=== PATIENT | female | born 2000 | race Caucasian/White ===

== ENCOUNTER 2021-05-04 15:01 | Emergency (ER) | payer SELFPAY ==
[~2021-05-04] VITALS: Ht 175.3 cm; Wt 71.4 kg
[2021-05-04 15:02] VITALS: BP 113/66
[2021-05-04] MEDS ORDERED: VENTAER INH (15:19)
== END 2021-05-04 18:00 | disposition left against medical advice (07) ==
LOC: M ED 15:01
DX: Z53.21 Procedure and treatment not carried out due to patient leaving prior to being seen by health care provider (principal)

== ENCOUNTER → 2021-06-02 | Outpatient (CLI) | payer OTHER ==
[~2021-06-02] MED LIST: VENTAER INH
--- NOTE | 2021-06-02 16:05 | PFTRPT ---
Site: [facility], [address] [place] [address], [id number] ID: [id number] Name: XIN SARMIENTO Visit Date: 06/02/2021 Second ID: [id number] Referring Doctor: Keith De Leon D.O. Reviewing Doctor: Judson Leyva MD Towel Folder: Jacquelyn TERRELL RRT Age: 20 : 2000 Sex: Female Race: Height: 69.00 Inches Weight: 160.00 Lbs BSA: 1.88 Order IDs: [id number] Requested Test(s): <RESP-PFT.PFT B/A> Diagnosis: ASTHMA test meet the ATS standards for acceptability and repeatability. Pt was given four puffs of albuterol for post bronchodilator. Review Status: Not Reviewed Pre-Bronch Post-Bronch Pred Actual %Pred Actual %Chng SPIROMETRY FVC (L) 4.42 4.32 97 4.54 5 FEV1 (L) 3.78 3.39 89 3.93 15 FEV1/FVC (%) 86 78 91 87 10 FEF 25% (L/sec) 6.40 4.95 77 6.66 34 FEF 50% (L/sec) 4.71 3.61 76 4.89 35 FEF 75% (L/sec) 2.07 1.65 79 2.76 66 FEF 25-75% (L/sec) 3.97 3.18 79 4.48 41 FEF Max (L/sec) 7.69 5.04 65 6.82 35 FIVC (L) 4.08 4.49 9 FIF 50% (L/sec) 4.34 4.76 109 4.37 -8 FIF Max (L/sec) 4.82 4.62 -4 MVV (L/min) 123 75 61 Expiratory Time (sec) 6.82 7.18 5 Back Extrap Vol (L) 0.16 0.18 11 Time To FEFmax (sec) 0.246 0.127 -48 LUNG VOLUMES SVC (L) 4.31 4.30 99 IC (L) 2.60 2.59 99 ERV (L) 1.71 1.71 99 TGV (L) 3.20 4.77 149 RV (Pleth) (L) 1.49 3.06 205 TLC (Pleth) (L) 5.80 7.36 126 RV/TLC (Pleth) (%) 24 42 173 DIFFUSION DLCOunc (ml/min/mmHg) 27.79 23.65 85 DL/VA (ml/min/mmHg/L) 4.79 4.12 85 VA (L) 5.80 5.74 99 BHT (sec) 10.17 IVC (L) 4.22 TLC (SB) (L) 5.89 AIRWAYS RESISTANCE Raw (cmH2O/L/s) 1.86 1.08 58 Gaw (L/s/cmH2O) 1.03 0.93 90 sRaw (cmH2O*s) 4.76 3.91 82 sGaw (1/cmH2O*s) 0.20 0.26 128
== END ==
LOC: M CARPUL 15:31
PROVIDERS: ATTEND Family Medicine
DX: J45.909 Unspecified asthma, uncomplicated (principal)

== ENCOUNTER → 2021-06-13 | Outpatient (CLI) | payer OTHER ==
--- NOTE | 2021-06-13 21:49 | REPVR ---
PROCEDURE INFORMATION: Exam: MR Head Without Contrast Exam date and time: 06/13/2021 9:09 AM Age: 20 years old Clinical indication: Pain; Headache; Cluster; headaches w/ decreased vision TECHNIQUE: Imaging protocol: MR of the head without contrast. COMPARISON: No relevant prior studies available. FINDINGS: Brain: No intracranial hemorrhage or extra-axial fluid collection. No evidence of mass effect or midline shift. No white matter abnormalities. No restricted diffusion to suggest acute infarct. Cerebral ventricles: Ventricles, cisterns, and sulci are normal. Bones/joints: Unremarkable. Paranasal sinuses: [id number] mucosal thickening of the paranasal sinuses. Mastoid air cells: Partial opacification of bilateral mastoid air cells. Orbital cavity: Unremarkable. Soft tissues: Unremarkable. IMPRESSION: 1. No acute intracranial findings. 2. Partial opacification of bilateral mastoid air cells. 3. [id number] mucosal thickening of the paranasal sinuses. Electronically signed by: Phoenix Young On 06/13/2021 21:49:37 PM
== END ==
LOC: M RAD 08:29
PROVIDERS: ATTEND Family Medicine
DX: R51.9 Headache, unspecified (principal); J32.9 Chronic sinusitis, unspecified

== ENCOUNTER → 2021-12-11 | Outpatient (CLI) | payer OTHER ==
[~2021-12-11] MED LIST changes: +AMIT50TA PO; +SING5CHW23 PO; +ZOLO25TA PO
[2021-12-11 10:15] LABS: BASO # 0.1 10^3/uL (0.0-0.2); EOS # 0.2 10^3/uL (0.0-0.5); EOS % 3.8 % (0.0-3.0); HEMATOCRIT 39.2 % (36.0-47.0); HEMOGLOBIN 13.1 g/dl (12.0-15.5); LYMPH # 1.5 10^3/uL (1.5-5.0); LYMPH % 28.9 % (24.0-44.0); MEAN CORPUSCULAR HEMOGLOBIN 28.2 pg (27.0-33.0); MEAN CORPUSCULAR HGB CONC 33.4 g/dl (32.0-36.5); MEAN CORPUSCULAR VOLUME 84.5 fl (80.0-96.0); MONO # 0.7 10^3/uL (0.0-0.8); MONO % 12.8 % (2.0-8.0); NEUTROPHILS # 2.7 10^3/uL (1.5-8.5); NEUTROPHILS % 53.5 % (36.0-66.0); PLATELET COUNT, AUTOMATED 287 10^3/uL (150-450); RED BLOOD COUNT 4.64 10^6/uL (4.00-5.40); WHITE BLOOD COUNT 5.1 10^3/uL (4.0-10.0)
[2021-12-11 10:25] LABS: PROTHROMBIN TIME 13.6 SECONDS (12.7-14.5)
[2021-12-11 10:26] LABS: PARTIAL THROMBOPLASTIN TIME 32.4 SECONDS (25.9-37.0)
== END ==
LOC: M LAB 09:02
PROVIDERS: ATTEND Psychiatry & Neurology Neurology
DX: D49.6 Neoplasm of unspecified behavior of brain (principal)

== ENCOUNTER → 2021-12-15 | Outpatient (CLI) | payer OTHER ==
[~2021-12-15] MED LIST changes: +LIDOCAINE 1% MDV 20ML VIAL As Ordered ONE
[2021-12-15 11:40] VITALS: BP 110/65
[2021-12-15 11:42] LABS: APPEARANCE, CSF CLEAR (CLEAR); COLOR, CSF COLORLESS (COLORLESS); CSF TUBE# CELL CNT TUBE 1
[2021-12-15 14:10] LABS: CSF TUBE# GLU TUBE 1; CSF TUBE# TP TUBE 1; GLUCOSE CSF 61 MG/DL (40-75); TOTAL PROTEIN,CSF 37 MG/DL (15-45)
== END ==
LOC: M IRPRO 08:34
PROVIDERS: ATTEND Psychiatry & Neurology Neurology
DX: G35 Multiple sclerosis (principal); G93.2 Benign intracranial hypertension

== ENCOUNTER → 2021-12-27 | Outpatient (CLI) | payer OTHER ==
[~2021-12-27] MED LIST changes: -LIDOCAINE 1% MDV 20ML VIAL As Ordered ONE
== END ==
LOC: M RAD 16:03
PROVIDERS: ATTEND Nurse Practitioner Adult Health
DX: J45.40 Moderate persistent asthma, uncomplicated (principal)

== ENCOUNTER 2022-03-24 16:07 | Emergency (ER) | payer OTHER ==
[~2022-03-24] VITALS: Ht 175.3 cm; Wt 66.6 kg
[2022-03-24 17:21] LABS: BASO # 0.1 10^3/uL (0.0-0.2); BASO % 0.8 % (0.0-1.0); EOS # 0.3 10^3/uL (0.0-0.5); EOS % 3.5 % (0.0-3.0); HEMATOCRIT 37.6 % (36.0-47.0); HEMOGLOBIN 12.1 g/dl (12.0-15.5); LYMPH % 21.5 % (24.0-44.0); MEAN CORPUSCULAR HEMOGLOBIN 28.5 pg (27.0-33.0); MEAN CORPUSCULAR HGB CONC 32.2 g/dl (32.0-36.5); MEAN CORPUSCULAR VOLUME 88.5 fl (80.0-96.0); MONO # 0.9 10^3/uL (0.0-0.8); MONO % 9.4 % (2.0-8.0); NEUTROPHILS % 64.4 % (36.0-66.0); PLATELET COUNT, AUTOMATED 344 10^3/uL (150-450); RED BLOOD COUNT 4.25 10^6/uL (4.00-5.40); WHITE BLOOD COUNT 9.2 10^3/uL (4.0-10.0)
[2022-03-24 17:42] LABS: CK-MB VALUE MASS 1.6 NG/ML (<3.6); CPK CREATINE PHOSPHOKINASE 83 U/L (26-192); MB/CK RELATIVE INDEX 1.93 (< OR =4)
[2022-03-24 17:49] LABS: ALBUMIN 3.6 GM/DL (3.2-5.2); ALT/SGPT 20 U/L (12-78); BILIRUBIN,DIRECT 0.2 MG/DL (0.0-0.2); BILIRUBIN,TOTAL 0.7 MG/DL (0.2-1.0); BLOOD UREA NITROGEN 16 MG/DL (7-18); CALCIUM LEVEL 9.8 MG/DL (8.5-10.1); CARBON DIOXIDE LEVEL 28 MEQ/L (21-32); CHLORIDE LEVEL 106 MEQ/L (98-107); CREATININE FOR GFR 0.82 MG/DL (0.55-1.30); GLOMERULAR FILTRATION RATE > 60.0 (>60); GLUCOSE, FASTING 82 MG/DL (70-100); LIPASE 144 U/L (73-393); NT-PRO BNP 113 PG/ML (<125); POTASSIUM SERUM 4.3 MEQ/L (3.5-5.1); SODIUM LEVEL 142 MEQ/L (136-145); TOTAL PROTEIN 7.4 GM/DL (6.4-8.2)
[2022-03-24 18:02] LABS: HCG, SERUM QUALITATIVE NEGATIVE (NEGATIVE)
[2022-03-24] MEDS ORDERED: IBUPROFEN 600MG TAB PO ONE (21:40)
[2022-03-24 21:46] VITALS: BP 107/66
== END 2022-03-24 21:49 | disposition home or self-care (01) ==
LOC: M ED 16:07
DX: R07.89 Other chest pain (principal); J45.909 Unspecified asthma, uncomplicated; Z79.899 Other long term (current) drug therapy

== ENCOUNTER → 2022-04-26 | Outpatient (CLI) | payer OTHER | LOC: M LAB 15:39 | PROVIDERS: ATTEND Nurse Practitioner Primary Care | DX: D12.6 Benign neoplasm of colon, unspecified (principal) ==

== ENCOUNTER → 2022-06-28 | Outpatient (REF) | payer MEDICAID, OTHER ==
[~2022-06-28] MED LIST changes: +FLUT50SP33 NARES; +NAPR-837 PO; +PRED20TA PO
== END ==
LOC: M SFHCDERM 17:37
PROVIDERS: ATTEND Physician Assistant
DX: L30.9 Dermatitis, unspecified (principal); L57.0 Actinic keratosis

== ENCOUNTER → 2022-07-18 | Outpatient (CLI) | payer OTHER ==
[~2022-07-18] MED LIST changes: +FLUT11IN INH
[2022-07-18 12:59] LABS: BASO # 0.1 10^3/uL (0.0-0.2); BASO % 0.6 % (0.0-1.0); EOS # 0.2 10^3/uL (0.0-0.5); EOS % 2.3 % (0.0-3.0); HEMATOCRIT 38.1 % (36.0-47.0); HEMOGLOBIN 11.9 g/dl (12.0-15.5); LYMPH # 1.9 10^3/uL (1.5-5.0); LYMPH % 23.8 % (24.0-44.0); MEAN CORPUSCULAR HEMOGLOBIN 27.8 pg (27.0-33.0); MEAN CORPUSCULAR HGB CONC 31.2 g/dl (32.0-36.5); MONO # 0.9 10^3/uL (0.0-0.8); MONO % 11.3 % (2.0-8.0); NEUTROPHILS # 4.9 10^3/uL (1.5-8.5); NEUTROPHILS % 61.9 % (36.0-66.0); PLATELET COUNT, AUTOMATED 370 10^3/uL (150-450); RED BLOOD COUNT 4.28 10^6/uL (4.00-5.40); WHITE BLOOD COUNT 7.9 10^3/uL (4.0-10.0)
== END ==
LOC: M LAB 12:23
PROVIDERS: ATTEND Physician Assistant
DX: J45.30 Mild persistent asthma, uncomplicated (principal)

== ENCOUNTER 2022-07-19 13:33 | Emergency (ER) | payer OTHER ==
[~2022-07-19] VITALS: Ht 152.4 cm; Wt 66.9 kg
[~2022-07-19 13:33] MED LIST changes: -FLUT11IN INH; -FLUT50SP33 NARES; -NAPR-837 PO; -PRED20TA PO
[2022-07-19] MEDS ORDERED: FLUT50SP33 NARES (15:10)
[2022-07-19 15:35] LABS: RSV AMPLIFICATION NEGATIVE (NEGATIVE)
[2022-07-19] MEDS ORDERED: KETOROLAC 30 MG/ML 1ML VIAL IV ONE (17:05)
[2022-07-19] MEDS: COMBIVENT RESPIMAT 100-20MCG INHALER 4GM INH SCH ×3 (17:22→18:04)
[2022-07-19 17:27] LABS: BASO # 0.1 10^3/uL (0.0-0.2); BASO % 0.8 % (0.0-1.0); EOS # 0.2 10^3/uL (0.0-0.5); EOS % 2.5 % (0.0-3.0); HEMATOCRIT 39.7 % (36.0-47.0); HEMOGLOBIN 12.8 g/dl (12.0-15.5); LYMPH # 2.1 10^3/uL (1.5-5.0); LYMPH % 22.9 % (24.0-44.0); MEAN CORPUSCULAR HEMOGLOBIN 28.3 pg (27.0-33.0); MEAN CORPUSCULAR HGB CONC 32.2 g/dl (32.0-36.5); MEAN CORPUSCULAR VOLUME 87.8 fl (80.0-96.0); MONO % 10.4 % (2.0-8.0); NEUTROPHILS # 5.9 10^3/uL (1.5-8.5); NEUTROPHILS % 63.1 % (36.0-66.0); PLATELET COUNT, AUTOMATED 414 10^3/uL (150-450); RED BLOOD COUNT 4.52 10^6/uL (4.00-5.40); WHITE BLOOD COUNT 9.3 10^3/uL (4.0-10.0)
[2022-07-19] MEDS ORDERED: ISOVUE-370 76% 100ML VIAL As Ordered ONE (17:39)
[2022-07-19] MEDS ORDERED: NAPR-837 PO (19:13)
[2022-07-19] MEDS ORDERED: PRED20TA PO (19:13)
[2022-07-19 19:34] VITALS: BP 116/78
== END 2022-07-19 19:36 | disposition home or self-care (01) ==
LOC: M ED 13:33
DX: R07.89 Other chest pain (principal); R06.02 Shortness of breath; J45.909 Unspecified asthma, uncomplicated
CPT/HCPCS: 71275; 80047; 84702; 85025; 87631; 94640; 96374; 99284; J1885; Q9967

== ENCOUNTER → 2022-07-20 | Outpatient (CLI) | payer OTHER ==
[~2022-07-20] MED LIST changes: +FLUT11IN INH; +FLUT50SP33 NARES; +NAPR-837 PO; +PRED20TA PO
== END ==
LOC: M CARPUL 13:08
PROVIDERS: ATTEND Physician Assistant
DX: J45.30 Mild persistent asthma, uncomplicated (principal)

== ENCOUNTER 2022-07-23 14:50 | Emergency (ER) | payer OTHER ==
[~2022-07-23] VITALS: Ht 175.3 cm; Wt 68.1 kg
[~2022-07-23 14:50] MED LIST changes: -FLUT11IN INH
[2022-07-23] MEDS ORDERED: FLUT11IN INH (14:58)
[2022-07-23] MEDS ORDERED: IPRATROPIUM 0.5MG/ALBUTEROL 2.5MG INH SOL UD 3ML (DUONEB) NEB ONE (17:15)
[2022-07-23 18:17] VITALS: BP 125/76
== END 2022-07-23 18:18 | disposition home or self-care (01) ==
LOC: M ED 14:50
DX: J98.01 Acute bronchospasm (principal); J45.909 Unspecified asthma, uncomplicated

== ENCOUNTER → 2022-08-08 | Outpatient (CLI) | payer OTHER ==
[~2022-08-08] MED LIST changes: +ADV100INH INH; +FLUT11IN INH; +ONDA4TAB6 PO; +SING4CHW9 PO
[2022-08-08 13:03] LABS: BASO # 0.1 10^3/uL (0.0-0.2); BASO % 1.1 % (0.0-1.0); EOS # 0.1 10^3/uL (0.0-0.5); EOS % 1.9 % (0.0-3.0); HEMATOCRIT 38.5 % (36.0-47.0); HEMOGLOBIN 12.2 g/dl (12.0-15.5); LYMPH # 1.3 10^3/uL (1.5-5.0); LYMPH % 28.1 % (24.0-44.0); MEAN CORPUSCULAR HEMOGLOBIN 27.8 pg (27.0-33.0); MEAN CORPUSCULAR HGB CONC 31.7 g/dl (32.0-36.5); MEAN CORPUSCULAR VOLUME 87.7 fl (80.0-96.0); MONO # 0.9 10^3/uL (0.0-0.8); NEUTROPHILS # 2.4 10^3/uL (1.5-8.5); NEUTROPHILS % 50.7 % (36.0-66.0); PLATELET COUNT, AUTOMATED 350 10^3/uL (150-450); RED BLOOD COUNT 4.39 10^6/uL (4.00-5.40); WHITE BLOOD COUNT 4.7 10^3/uL (4.0-10.0)
[2022-08-08 13:35] LABS: ERYTHROCYTE SEDIMENTATION RATE 25 mm/hr (0-20)
[2022-08-08 13:49] LABS: ALBUMIN 3.4 GM/DL (3.2-5.2); ALT/SGPT 24 U/L (12-78); BILIRUBIN,TOTAL 0.4 MG/DL (0.2-1.0); BLOOD UREA NITROGEN 9 MG/DL (7-18); CALCIUM LEVEL 9.1 MG/DL (8.5-10.1); CARBON DIOXIDE LEVEL 26 MEQ/L (21-32); CHLORIDE LEVEL 106 MEQ/L (98-107); CREATININE FOR GFR 0.66 MG/DL (0.55-1.30); FERRITIN 11 NG/ML (8-252); FREE T4 0.99 NG/DL (0.76-1.46); GLOMERULAR FILTRATION RATE > 60.0 (>60); GLUCOSE, FASTING 94 MG/DL (70-100); IRON (FE) 25 UG/DL (50-170); POTASSIUM SERUM 3.7 MEQ/L (3.5-5.1); RHEUMATOID FACTOR QUANT < 10.0 IU/ML (<15.0); SODIUM LEVEL 137 MEQ/L (136-145); THYROID STIMULATING HORMONE 0.864 uIU/ML (0.358-3.740); TOTAL IRON BINDING CAPACITY 497 UG/DL (250-450); TOTAL PROTEIN 7.3 GM/DL (6.4-8.2)
[2022-08-08 14:23] LABS: VITAMIN B12 LEVEL 338 PG/ML (247-911)
[2022-08-10 23:11] LABS: ANA (HEP2) Negative (.); CYCLIC CITRULLINATED PEPTIDE 9 units (0-19)
== END ==
LOC: M LAB 12:12
PROVIDERS: ATTEND Physician Assistant
DX: G47.00 Insomnia, unspecified (principal); J45.41 Moderate persistent asthma with (acute) exacerbation; M25.50 Pain in unspecified joint; M79.89 Other specified soft tissue disorders

== ENCOUNTER 2022-08-12 12:45 | Emergency (ER) | payer OTHER ==
[~2022-08-12] VITALS: Ht 177.8 cm; Wt 66.9 kg
[~2022-08-12 12:45] MED LIST changes: -ADV100INH INH; -ONDA4TAB6 PO; -SING4CHW9 PO
[2022-08-12 12:46] VITALS: BP 132/63
[2022-08-12] MEDS ORDERED: ADV100INH INH (12:55)
[2022-08-12] MEDS ORDERED: SING4CHW9 PO (12:55)
[2022-08-12 13:27] LABS: BASO % 0.4 % (0.0-1.0); EOS # 0.1 10^3/uL (0.0-0.5); HEMATOCRIT 40.6 % (36.0-47.0); HEMOGLOBIN 12.8 g/dl (12.0-15.5); LYMPH # 1.6 10^3/uL (1.5-5.0); LYMPH % 34.9 % (24.0-44.0); MEAN CORPUSCULAR HEMOGLOBIN 27.6 pg (27.0-33.0); MEAN CORPUSCULAR HGB CONC 31.5 g/dl (32.0-36.5); MEAN CORPUSCULAR VOLUME 87.7 fl (80.0-96.0); MONO # 0.5 10^3/uL (0.0-0.8); MONO % 11.3 % (2.0-8.0); NEUTROPHILS # 2.3 10^3/uL (1.5-8.5); NEUTROPHILS % 51.4 % (36.0-66.0); PLATELET COUNT, AUTOMATED 278 10^3/uL (150-450); RED BLOOD COUNT 4.63 10^6/uL (4.00-5.40); WHITE BLOOD COUNT 4.5 10^3/uL (4.0-10.0)
[2022-08-12 14:10] LABS: BLOOD UREA NITROGEN 11 MG/DL (7-18); CARBON DIOXIDE LEVEL 26 MEQ/L (21-32); CHLORIDE LEVEL 105 MEQ/L (98-107); CREATININE FOR GFR 0.71 MG/DL (0.55-1.30); GLOMERULAR FILTRATION RATE > 60.0 (>60); GLUCOSE, FASTING 105 MG/DL (70-100); SODIUM LEVEL 136 MEQ/L (136-145)
[2022-08-12 14:11] LABS: ALBUMIN 3.5 GM/DL (3.2-5.2); ALT/SGPT 28 U/L (12-78); BILIRUBIN,TOTAL 0.3 MG/DL (0.2-1.0); CALCIUM LEVEL 8.9 MG/DL (8.5-10.1); TOTAL PROTEIN 7.6 GM/DL (6.4-8.2)
[2022-08-12 14:34] LABS: HEPATITIS B SURFACE ANTIBODY POSITIVE (POSITIVE)
[2022-08-12 14:46] LABS: HEPATITIS B SURFACE ANTIGEN NEGATIVE (NEGATIVE)
[2022-08-12 15:16] LABS: HEPATITIS C VIRUS ABY INDEX < 0.0 INDEX (<0.8); HIV SCREEN CENTAUR EXPOSED NEGATIVE (NEGATIVE)
[2022-08-12] MEDS ORDERED: ONDA4TAB6 PO (15:28)
[2022-08-12] MEDS ORDERED: ONDANSETRON 4MG ORAL DISINTEGRATING TAB PO ONE (15:30)
[2022-08-12] MEDS ORDERED: EXPOSURE KIT-ADULT 7 DAY SUPPLY PO ONE (15:30)
[2022-08-12 16:00] LABS: HCG, SERUM QUALITATIVE NEGATIVE (NEGATIVE)
[2022-08-12] MEDS ORDERED: RALTEGRAVIR 400 MG TAB (ISENTRESS) PO ONE (16:25)
[2022-08-12] MEDS ORDERED: TRUVADA 200MG/300MG TABLET PO ONE (16:25)
[2022-08-13] MEDS ORDERED: RALTEGRAVIR 400 MG TAB (ISENTRESS) PO SCH
[2022-08-13] MEDS ORDERED: TRUVADA 200MG/300MG TABLET PO SCH
== END 2022-08-12 16:46 | disposition home or self-care (01) ==
LOC: M ED 12:45
DX: Z77.21 Contact with and (suspected) exposure to potentially hazardous body fluids (principal); S61.431A Puncture wound without foreign body of right hand, initial encounter; W46.1XXA Contact with contaminated hypodermic needle, initial encounter; Y99.0 Civilian activity done for income or pay; F41.9 Anxiety disorder, unspecified; Z79.51 Long term (current) use of inhaled steroids; Z79.899 Other long term (current) drug therapy

== ENCOUNTER → 2022-08-18 | Outpatient (REF) ==
[~2022-08-18] MED LIST changes: +ADV100INH INH; +ONDA4TAB6 PO; +SING4CHW9 PO
[2022-08-18 13:06] LABS: RSV AMPLIFICATION NEGATIVE (NEGATIVE)
== END ==
LOC: M EMP 11:31
PROVIDERS: ATTEND Family Medicine
DX: Z20.822 Contact with and (suspected) exposure to COVID-19 (principal)

== ENCOUNTER → 2022-08-18 | Outpatient (CLI) | payer OTHER | LOC: M CARPUL 13:35 | PROVIDERS: ATTEND Physician Assistant | DX: M79.89 Other specified soft tissue disorders (principal); R06.02 Shortness of breath ==

== ENCOUNTER 2022-10-16 11:31 | Emergency (ER) | payer OTHER ==
[~2022-10-16] VITALS: Ht 177.8 cm; Wt 70.1 kg
[2022-10-16 12:50] LABS: BASO # 0.1 10^3/uL (0.0-0.2); BASO % 0.6 % (0.0-1.0); EOS # 0.3 10^3/uL (0.0-0.5); EOS % 2.6 % (0.0-3.0); HEMOGLOBIN 12.6 g/dl (12.0-15.5); LYMPH # 1.9 10^3/uL (1.5-5.0); LYMPH % 15.2 % (24.0-44.0); MEAN CORPUSCULAR HEMOGLOBIN 27.4 pg (27.0-33.0); MEAN CORPUSCULAR HGB CONC 32.3 g/dl (32.0-36.5); MEAN CORPUSCULAR VOLUME 84.8 fl (80.0-96.0); MONO # 1.3 10^3/uL (0.0-0.8); MONO % 10.2 % (2.0-8.0); NEUTROPHILS # 8.7 10^3/uL (1.5-8.5); NEUTROPHILS % 71.1 % (36.0-66.0); PLATELET COUNT, AUTOMATED 359 10^3/uL (150-450); WHITE BLOOD COUNT 12.2 10^3/uL (4.0-10.0)
[2022-10-16 13:15] LABS: LIPASE 28 U/L (12-53)
[2022-10-16] MEDS ORDERED: NS 1,000 ML IV ONE (13:15)
[2022-10-16] MEDS ORDERED: ACETAMINOPHEN 1000MG 100ML IV BAG IV ONE (13:15)
[2022-10-16] MEDS ORDERED: ONDANSETRON 4MG 2ML VIAL IV ONE (13:15)
[2022-10-16 13:17] LABS: ALBUMIN 3.7 G/DL (3.2-5.2); ALKALINE PHOSPHATASE 47 U/L (46-116); ALT/SGPT 27 U/L (7.0-40); AST/SGOT 37 U/L (<34); BILIRUBIN,DIRECT 0.3 MG/DL (<0.4); BILIRUBIN,TOTAL 0.9 MG/DL (0.3-1.2); BLOOD UREA NITROGEN 12 MG/DL (9-23); CALCIUM LEVEL 9.6 MG/DL (8.5-10.1); CARBON DIOXIDE LEVEL 22 MMOL/L (20-31); CHLORIDE LEVEL 105 MMOL/L (98-107); CREATININE FOR GFR 0.63 MG/DL (0.55-1.30); GLOMERULAR FILTRATION RATE > 60.0 (>60); GLUCOSE, FASTING 99 MG/DL (60-100); SODIUM LEVEL 139 MMOL/L (136-145); TOTAL PROTEIN 7.5 G/DL (5.7-8.2)
[2022-10-16 13:18] LABS: HCG, SERUM QUALITATIVE NEGATIVE (NEGATIVE)
[2022-10-16] MEDS ORDERED: ISOVUE-370 76% 100ML VIAL As Ordered ONE (13:51)
[2022-10-16 15:22] VITALS: BP 115/73
== END 2022-10-16 15:40 | disposition home or self-care (01) ==
LOC: M ED 11:31
DX: N83.291 Other ovarian cyst, right side (principal); J45.909 Unspecified asthma, uncomplicated; Z79.899 Other long term (current) drug therapy
CPT/HCPCS: 74177; 80048; 80076; 83690; 84703; 85025; 96361; 96374; 96375; 99284; J0131; J2405

== ENCOUNTER → 2022-10-19 | Outpatient (REF) ==
[2022-10-19 14:01] LABS: RSV AMPLIFICATION NEGATIVE (NEGATIVE)
== END ==
LOC: M LABSMTC 11:29
PROVIDERS: ATTEND Family Medicine
DX: Z20.818 Contact with and (suspected) exposure to other bacterial communicable diseases (principal)

== ENCOUNTER → 2022-11-11 | Outpatient (CLI) | payer OTHER ==
[2022-11-11 12:33] LABS: BASO % 0.5 % (0.0-1.0); EOS # 0.1 10^3/uL (0.0-0.5); EOS % 1.2 % (0.0-3.0); HEMATOCRIT 38.2 % (36.0-47.0); HEMOGLOBIN 12.2 g/dl (12.0-15.5); LYMPH # 1.6 10^3/uL (1.5-5.0); LYMPH % 21.4 % (24.0-44.0); MEAN CORPUSCULAR HEMOGLOBIN 27.7 pg (27.0-33.0); MEAN CORPUSCULAR HGB CONC 31.9 g/dl (32.0-36.5); MEAN CORPUSCULAR VOLUME 86.6 fl (80.0-96.0); MONO # 0.8 10^3/uL (0.0-0.8); MONO % 10.5 % (2.0-8.0); NEUTROPHILS # 4.9 10^3/uL (1.5-8.5); NEUTROPHILS % 66.1 % (36.0-66.0); PLATELET COUNT, AUTOMATED 352 10^3/uL (150-450); RED BLOOD COUNT 4.41 10^6/uL (4.00-5.40); WHITE BLOOD COUNT 7.4 10^3/uL (4.0-10.0)
[2022-11-11 12:45] LABS: INR 1.02; PROTHROMBIN TIME 13.6 SECONDS (12.5-14.5)
[2022-11-11 12:46] LABS: PARTIAL THROMBOPLASTIN TIME 29.9 SECONDS (24.8-34.2)
[2022-11-11 13:04] LABS: ALBUMIN 3.8 G/DL (3.2-5.2); ALKALINE PHOSPHATASE 50 U/L (46-116); ALT/SGPT 46 U/L (7.0-40); AST/SGOT 37 U/L (<34); BLOOD UREA NITROGEN 15 MG/DL (9-23); CALCIUM LEVEL 9.1 MG/DL (8.5-10.1); CARBON DIOXIDE LEVEL 31 MMOL/L (20-31); CHLORIDE LEVEL 100 MMOL/L (98-107); CREATININE FOR GFR 0.68 MG/DL (0.55-1.30); GLOMERULAR FILTRATION RATE > 60.0 (>60); GLUCOSE, FASTING 90 MG/DL (60-100); POTASSIUM SERUM 3.9 MMOL/L (3.5-5.1); SODIUM LEVEL 134 MMOL/L (136-145); TOTAL PROTEIN 7.6 G/DL (5.7-8.2)
== END ==
LOC: M RAD 11:55 → M LAB 11:55
DX: Z01.818 Encounter for other preprocedural examination (principal)

== ENCOUNTER → 2022-12-29 | Outpatient (REF) | LOC: M LABSMTC 11:59 | PROVIDERS: ATTEND Family Medicine | DX: Z11.52 Encounter for screening for COVID-19 (principal) ==

== ENCOUNTER 2023-02-07 20:52 | Emergency (ER) | payer OTHER ==
[~2023-02-07] VITALS: Ht 177.8 cm; Wt 76.8 kg
[2023-02-07 20:52] VITALS: BP 127/70
[~2023-02-07 20:52] MED LIST changes: +MONT4TAB2 PO; -SING4CHW9 PO
[2023-02-07 22:37] LABS: URINE PREG TEST NEGATIVE (NEGATIVE)
[2023-02-07 23:59] LABS: GC DNA AMPLIFICATION NEGATIVE (NEGATIVE)
== END 2023-02-08 00:07 | disposition home or self-care (01) ==
LOC: M ED 20:52
DX: N83.291 Other ovarian cyst, right side (principal); J45.909 Unspecified asthma, uncomplicated; F41.9 Anxiety disorder, unspecified; Z79.899 Other long term (current) drug therapy

== ENCOUNTER → 2023-02-24 | Outpatient (REF) | payer OTHER | LOC: M SFHCDERM 08:24 | PROVIDERS: ATTEND Dermatology | DX: D22.9 Melanocytic nevi, unspecified (principal) ==

== ENCOUNTER 2023-05-15 22:07 | Emergency (ER) | payer OTHER ==
[~2023-05-15] VITALS: Ht 177.8 cm; Wt 80.3 kg
[~2023-05-15 22:07] MED LIST changes: -FLUT11IN INH; +FLUT12AE6 INH
[2023-05-15 22:08] VITALS: BP 116/63; TEMP 98.9; O2SAT 100
[2023-05-15] MEDS ORDERED: ALBU2.5V10 INH (22:24)
== END 2023-05-16 00:58 | disposition left against medical advice (07) ==
LOC: M ED 22:07
DX: Z53.21 Procedure and treatment not carried out due to patient leaving prior to being seen by health care provider (principal)

== ENCOUNTER → 2023-05-18 | Outpatient (REF) | payer OTHER ==
[~2023-05-18] MED LIST changes: +ALBU2.5V10 INH
[2023-05-18 14:49] LABS: BASO # 0.1 10^3/uL (0.0-0.2); BASO % 0.8 % (0.0-1.0); EOS # 0.2 10^3/uL (0.0-0.5); HEMATOCRIT 42.8 % (36.0-47.0); HEMOGLOBIN 14.1 g/dl (12.0-15.5); LYMPH # 1.3 10^3/uL (1.5-5.0); LYMPH % 16.9 % (24.0-44.0); MEAN CORPUSCULAR HEMOGLOBIN 29.1 pg (27.0-33.0); MEAN CORPUSCULAR HGB CONC 32.9 g/dl (32.0-36.5); MEAN CORPUSCULAR VOLUME 88.4 fl (80.0-96.0); MONO # 0.9 10^3/uL (0.0-0.8); MONO % 11.5 % (2.0-8.0); NEUTROPHILS # 5.4 10^3/uL (1.5-8.5); NEUTROPHILS % 68.4 % (36.0-66.0); PLATELET COUNT, AUTOMATED 337 10^3/uL (150-450); RED BLOOD COUNT 4.84 10^6/uL (4.00-5.40); WHITE BLOOD COUNT 7.9 10^3/uL (4.0-10.0)
== END ==
LOC: M LAB REF 13:03
PROVIDERS: ATTEND Nurse Practitioner Adult Health
DX: J45.40 Moderate persistent asthma, uncomplicated (principal)

== ENCOUNTER → 2023-05-30 | Outpatient (CLI) | payer OTHER ==
[2023-05-30 17:01] LABS: BASO % 0.6 % (0.0-1.0); EOS # 0.2 10^3/uL (0.0-0.5); HEMATOCRIT 38.6 % (36.0-47.0); HEMOGLOBIN 12.5 g/dl (12.0-15.5); LYMPH # 1.6 10^3/uL (1.5-5.0); LYMPH % 30.3 % (24.0-44.0); MEAN CORPUSCULAR HEMOGLOBIN 28.5 pg (27.0-33.0); MEAN CORPUSCULAR HGB CONC 32.4 g/dl (32.0-36.5); MEAN CORPUSCULAR VOLUME 88.1 fl (80.0-96.0); MONO # 0.7 10^3/uL (0.0-0.8); MONO % 12.3 % (2.0-8.0); NEUTROPHILS # 2.8 10^3/uL (1.5-8.5); NEUTROPHILS % 53.4 % (36.0-66.0); PLATELET COUNT, AUTOMATED 364 10^3/uL (150-450); RED BLOOD COUNT 4.38 10^6/uL (4.00-5.40); WHITE BLOOD COUNT 5.3 10^3/uL (4.0-10.0)
[2023-05-30 17:24] LABS: FERRITIN 41.8 NG/ML (7.3-270.7); THYROID STIMULATING HORMONE 1.311 uIU/ML (0.55-4.78)
[2023-05-30 17:25] LABS: TOTAL 25(OH) VITAMIN D 34.9 NG/ML (20.0-100.0)
[2023-05-30 17:28] LABS: FREE T4 1.03 NG/DL (0.89-1.76)
== END ==
LOC: M LAB 15:43
PROVIDERS: ATTEND Dermatology
DX: T73.2XXA Exhaustion due to exposure, initial encounter (principal); R07.9 Chest pain, unspecified; Y99.8 Other external cause status

== ENCOUNTER → 2023-05-30 | Outpatient (CLI) | payer OTHER | LOC: M RAD 15:50 | PROVIDERS: ATTEND Nurse Practitioner Adult Health | DX: R07.9 Chest pain, unspecified (principal) ==

== ENCOUNTER → 2023-06-06 | Outpatient (REF) | LOC: M EMP 08:18 | PROVIDERS: ATTEND Family Medicine | DX: Z11.52 Encounter for screening for COVID-19 (principal) ==

== ENCOUNTER 2023-06-07 16:07 | Emergency (ER) | payer OTHER ==
[~2023-06-07] VITALS: Ht 177.8 cm; Wt 75.0 kg
[2023-06-07 16:08] VITALS: BP 118/78; TEMP 97.6; O2SAT 99
== END 2023-06-07 20:16 | disposition left against medical advice (07) ==
LOC: M ED 16:07
DX: Z53.21 Procedure and treatment not carried out due to patient leaving prior to being seen by health care provider (principal)

== ENCOUNTER → 2024-02-07 | Outpatient (CLI) | payer OTHER ==
[~2024-02-07] MED LIST changes: +MONT5TAB7 PO; -SING5CHW23 PO
[2024-02-07 13:34] LABS: BASO # 0.1 10^3/uL (0.0-0.2); BASO % 1.2 % (0.0-1.0); EOS # 0.4 10^3/uL (0.0-0.5); EOS % 5.8 % (0.0-3.0); HEMATOCRIT 42.2 % (36.0-47.0); HEMOGLOBIN 13.9 g/dl (12.0-15.5); LYMPH # 1.5 10^3/uL (1.5-5.0); LYMPH % 21.5 % (24.0-44.0); MEAN CORPUSCULAR HEMOGLOBIN 29.6 pg (27.0-33.0); MEAN CORPUSCULAR HGB CONC 32.9 g/dl (32.0-36.5); MONO # 0.8 10^3/uL (0.0-0.8); MONO % 11.1 % (2.0-8.0); NEUTROPHILS # 4.2 10^3/uL (1.5-8.5); NEUTROPHILS % 60.1 % (36.0-66.0); PLATELET COUNT, AUTOMATED 300 10^3/uL (150-450); RED BLOOD COUNT 4.69 10^6/uL (4.00-5.40); WHITE BLOOD COUNT 6.9 10^3/uL (4.0-10.0)
[2024-02-07 14:15] LABS: ALBUMIN 3.6 G/DL (3.2-5.2); ALKALINE PHOSPHATASE 42 U/L (46-116); ALT/SGPT 15 U/L (7.0-40); AST/SGOT 15 U/L (<34); BILIRUBIN,TOTAL 0.9 MG/DL (0.3-1.2); BLOOD UREA NITROGEN 10 MG/DL (9-23); CALCIUM LEVEL 9.3 MG/DL (8.5-10.1); CARBON DIOXIDE LEVEL 31 MMOL/L (20-31); CHLORIDE LEVEL 104 MMOL/L (98-107); CREATININE FOR GFR 0.69 MG/DL (0.55-1.30); FOLATE 13.6 NG/ML (>5.4); FREE T4 0.97 NG/DL (0.89-1.76); GLOMERULAR FILTRATION RATE > 60.0 (>60); GLUCOSE, FASTING 81 MG/DL (60-100); IRON (FE) 141 UG/DL (50-170); PERCENT SATURATION 39.3 % (13.2-45.0); POTASSIUM SERUM 4.5 MMOL/L (3.5-5.1); SODIUM LEVEL 139 MMOL/L (136-145); TOTAL 25(OH) VITAMIN D 11.6 NG/ML (20.0-100.0); TOTAL IRON BINDING CAPACITY 359 UG/DL (250-425); TOTAL PROTEIN 6.7 G/DL (5.7-8.2); VITAMIN B12 LEVEL 406 PG/ML (211-911)
== END ==
LOC: M PLALAB 11:31
PROVIDERS: ATTEND Physician Assistant
DX: J45.40 Moderate persistent asthma, uncomplicated (principal); L20.9 Atopic dermatitis, unspecified; R07.89 Other chest pain; Z13.21 Encounter for screening for nutritional disorder

== ENCOUNTER 2024-04-13 16:43 | Emergency (ER) | payer OTHER ==
[~2024-04-13] VITALS: Ht 177.8 cm; Wt 86.4 kg
[2024-04-13 16:43] VITALS: BP 119/64; TEMP 97.9; O2SAT 97
[~2024-04-13 16:43] MED LIST changes: +ONDA-282 PO; -ONDA4TAB6 PO
== END 2024-04-13 18:34 | disposition home or self-care (01) ==
LOC: M ED 16:43
DX: R25.1 Tremor, unspecified (principal); R51.9 Headache, unspecified; J45.909 Unspecified asthma, uncomplicated; Z79.899 Other long term (current) drug therapy

== ENCOUNTER 2024-11-08 14:04 | Emergency (ER) | payer OTHER ==
[~2024-11-08] VITALS: Ht 175.3 cm; Wt 86.6 kg
[~2024-11-08 14:04] MED LIST changes: -ADV100INH INH; +ADVA1AER8 INH
[2024-11-08] MEDS ORDERED: SERT25TA21 PO (14:17)
[2024-11-08 14:31] LABS: BASO # 0.1 10^3/uL (0.0-0.2); BASO % 0.8 % (0.0-1.0); EOS # 0.3 10^3/uL (0.0-0.5); EOS % 2.8 % (0.0-3.0); HEMOGLOBIN 13.8 g/dl (12.0-15.5); LYMPH % 22.5 % (24.0-44.0); MEAN CORPUSCULAR HEMOGLOBIN 30.1 pg (27.0-33.0); MEAN CORPUSCULAR HGB CONC 33.7 g/dl (32.0-36.5); MEAN CORPUSCULAR VOLUME 89.3 fl (80.0-96.0); MONO # 0.8 10^3/uL (0.0-0.8); MONO % 8.6 % (2.0-8.0); NEUTROPHILS # 5.8 10^3/uL (1.5-8.5); NEUTROPHILS % 65.1 % (36.0-66.0); PLATELET COUNT, AUTOMATED 355 10^3/uL (150-450); RED BLOOD COUNT 4.59 10^6/uL (4.00-5.40)
[2024-11-08 15:17] LABS: CK-MB VALUE MASS < 1.0 NG/ML (<3.6)
[2024-11-08 15:19] LABS: BLOOD UREA NITROGEN 12 MG/DL (9-23); CALCIUM LEVEL 9.5 MG/DL (8.5-10.1); CARBON DIOXIDE LEVEL 28 MMOL/L (20-31); CHLORIDE LEVEL 107 MMOL/L (98-107); CPK CREATINE PHOSPHOKINASE 104 U/L (34-145); GLOMERULAR FILTRATION RATE > 60.0 (>60); GLUCOSE, FASTING 112 MG/DL (60-100); MB/CK RELATIVE INDEX 0.96 (< OR =4); SODIUM LEVEL 140 MMOL/L (136-145)
[2024-11-08 16:44] LABS: HCG, SERUM QUALITATIVE NEGATIVE (NEGATIVE)
[2024-11-08 17:45] VITALS: BP 110/72; TEMP 96.7; O2SAT 100
== END 2024-11-08 18:18 | disposition home or self-care (01) ==
LOC: M ED 14:04
DX: R07.89 Other chest pain (principal); J45.909 Unspecified asthma, uncomplicated; F41.9 Anxiety disorder, unspecified; Z79.899 Other long term (current) drug therapy

== ENCOUNTER → 2024-12-04 | Outpatient (REF) | payer OTHER ==
[~2024-12-04] MED LIST changes: +SERT25TA21 PO
== END ==
LOC: M SFHCPLAZ 12:21
PROVIDERS: ATTEND Physician Assistant Medical
DX: R30.0 Dysuria (principal)

== ENCOUNTER → 2024-12-23 | Outpatient (REF) | payer OTHER ==
[2024-12-23 17:36] LABS: BASO # 0.1 10^3/uL (0.0-0.2); BASO % 0.8 % (0.0-1.0); EOS # 0.2 10^3/uL (0.0-0.5); EOS % 2.3 % (0.0-3.0); HEMATOCRIT 42.4 % (36.0-47.0); HEMOGLOBIN 13.7 g/dl (12.0-15.5); LYMPH # 1.8 10^3/uL (1.5-5.0); LYMPH % 20.4 % (24.0-44.0); MEAN CORPUSCULAR HEMOGLOBIN 29.6 pg (27.0-33.0); MEAN CORPUSCULAR HGB CONC 32.3 g/dl (32.0-36.5); MEAN CORPUSCULAR VOLUME 91.6 fl (80.0-96.0); MONO # 0.8 10^3/uL (0.0-0.8); NEUTROPHILS # 5.8 10^3/uL (1.5-8.5); NEUTROPHILS % 67.2 % (36.0-66.0); PLATELET COUNT, AUTOMATED 333 10^3/uL (150-450); RED BLOOD COUNT 4.63 10^6/uL (4.00-5.40); WHITE BLOOD COUNT 8.7 10^3/uL (4.0-10.0)
[2024-12-23 17:39] LABS: ALBUMIN 3.7 G/DL (3.2-5.2); ALKALINE PHOSPHATASE 54 U/L (35-104); ALT/SGPT 24 U/L (7.0-40); AST/SGOT 23 U/L (<34); BILIRUBIN,TOTAL 0.5 MG/DL (0.3-1.2); BLOOD UREA NITROGEN 14 MG/DL (9-23); CALCIUM LEVEL 9.2 MG/DL (8.5-10.1); CARBON DIOXIDE LEVEL 26 MMOL/L (20-31); CHLORIDE LEVEL 107 MMOL/L (98-107); CREATININE FOR GFR 0.66 MG/DL (0.55-1.30); GLOMERULAR FILTRATION RATE > 60.0 (>60); GLUCOSE, FASTING 101 MG/DL (60-100); POTASSIUM SERUM 4.8 MMOL/L (3.5-5.1); SODIUM LEVEL 139 MMOL/L (136-145); TOTAL PROTEIN 7.8 G/DL (5.7-8.2)
[2024-12-23 17:41] LABS: THYROID STIMULATING HORMONE 1.295 uIU/ML (0.55-4.78); TOTAL 25(OH) VITAMIN D 21.2 NG/ML (20.0-100.0)
[2024-12-23 17:42] LABS: FREE T4 1.05 NG/DL (0.89-1.76)
[2024-12-23 17:48] LABS: HEMOGLOBIN A1c 4.9 % (4.0-6.0)
== END ==
LOC: M SFHCADAM 11:41
PROVIDERS: ATTEND Physician Assistant
DX: J45.41 Moderate persistent asthma with (acute) exacerbation (principal); Z68.28 Body mass index [BMI] 28.0-28.9, adult